=== PATIENT | female | born 1960 | race Caucasian/White ===

== ENCOUNTER 2017-01-10 06:19 | Day surgery (SDC) | payer OTHER ==
[2017-01-09 13:23] LABS: MANUAL DIFF NEEDED? NO
[2017-01-09 13:31] LABS: BASO% 0.4 % (0.0-0.8); EOS# 0.17 X1000 (0.0-0.7); EOS% 2.1 % (0.0-10.0); HEMOGLOBIN 13.4 g/dL (12.0-16.0); LYMPH# 2.81 X1000 (1.2-3.4); LYMPH% 34.1 % (20.5-51.1); MCH 26.6 PG (27-31); MCHC 32.7 g/dL (33-37); MCV 81.5 FL (81-99); MONO# 0.58 X1000 (0.11-0.59); MPV 10.8 FL (7.4-10.4); NEUT% 56.4 % (42.2-75.2); PLT 273 X1000 (130-400); RBC 5.03 XMIL (4.2-5.4)
--- NOTE | 2017-01-09 13:58 | EKG Report ---
Test Performed on : 01/09/2017 1:14:31 PM Test Reason : PAT Blood Pressure : / mmHG Vent. Rate : 081 BPM Atrial Rate : 081 BPM P-R Int : 158 ms QRS Dur : 086 ms QT Int : 412 ms P-R-T Axes : 060 010 055 degrees QTc Int : 478 ms Normal sinus rhythm. Normal ECG No previous ECGs available Confirmed by Orin RAYGOZA, Louis Pyle ([id number]) on 01/11/2017 5:20:12 PM
[2017-01-09 14:13] LABS: AGAP 12; BUN 13 mg/dL (8-22); CALCIUM 9.2 mg/dL (8.8-10.2); CHLORIDE 102 mmol/L (98-107); COSMO 286; SODIUM 143 mmol/L (136-145); TCO2 29 mmol/L (25-35)
[2017-01-10] MEDS ORDERED: REGLAN ONE (06:53)
[2017-01-10] MEDS ORDERED: PEPCID ONE (06:53)
[2017-01-10] MEDS ORDERED: KEFZOL 2 GM/D5W 50 ML ONE (06:54)
[2017-01-10] MEDS ORDERED: LR 1,000 ML ONE (06:54)
[2017-01-10] MEDS ORDERED: XYLOCAINE 2% JELLY UROJECT ONE (08:57)
[2017-01-10] MEDS ORDERED: B & O 16A SUPP ONE (09:49)
--- NOTE | 2017-01-10 10:18 | Diag Imaging Result Document ---
PROCEDURE NAME: RETROGRADES 2 OR 3 FILMS - 01/10/2017 SIX FLUOROSCOPIC FILMS SUBMITTED FROM A PROCEDURE PERFORMED BY DR. TYLER: FINDINGS: There is retrograde filling of both ureters. No obstruction to retrograde flow within either ureter. No filling defect or stricture. The calices are blunted. No drainage film taken. IMPRESSION: No definite abnormality.
[2017-01-10 11:31] VITALS: BP 140/76
[2017-01-10] MEDS ORDERED: ZOFRAN ONE (14:58)
[2017-01-10] MEDS ORDERED: XYLOCAINE-MPF 2% ONE (14:59)
[2017-01-10] MEDS ORDERED: DECADRON ONE (14:59)
--- NOTE | 2017-01-10 16:08 | OPERATIVE NOTE ---
PROCEDURE DATE: 01/10/2017 PREOPERATIVE DIAGNOSES: 1. Right flank pain of unknown etiology (normal CT scan with a normal looking right kidney and ureter). 2. Degenerative joint disease of the lumbar spine. 3. Urethral stenosis. 4. Chronic cystitis. 5. Possible interstitial cystitis. 6. Urethral stenosis and hypoestrogenism. POSTOPERATIVE DIAGNOSES: 1. Right flank pain of unknown etiology (normal CT scan with a normal looking right kidney and ureter). 2. Degenerative joint disease of the lumbar spine. 3. Urethral stenosis. 4. Chronic cystitis. 5. Possible interstitial cystitis. 6. Urethral stenosis and hypoestrogenism. PROCEDURE: Cystoscopy. Bilateral retrograde pyelogram. Hydrodistention bladder biopsy. Urethral dilatation. ANESTHESIA: General. SURGEON: Jean Marie Reilly MD. PROCEDURE IN DETAIL: The patient was explained about the risks and benefits. She was taken to the operating room and was induced with general anesthesia. The external genitalia on inspection looked basically normal. There was 1+ urethral stenosis and a small urethral caruncle. The urethra was dilated to 26-[place] with the female sounds. A #21 rigid cystoscope was introduced into the bladder. The bladder was inspected. 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 Both ureteral orifices looked normal and the retrograde pyelogram revealed normal upper tracts. Hydrodistention of the bladder was done with 600 mL, and a second look was obtained. There was evidence of some glomerulations and petechial hemorrhagic areas in the base of the bladder. One bladder biopsy was obtained from one of those areas with alligator biopsy forceps. Sampling was satisfactory. The cystoscope was withdrawn. Further plan would be to treat her with some topical estrogen cream. We probably need to give her some topical silver nitrate inside the bladder for chronic trigonal cystitis and treat her with some p.o. antibiotics. We will give her topical estrogen cream and some medication for degenerative joint disease and lumbosacral arthritis.
[2017-01-10] MEDS ORDERED: DIPRIVAN 1% ONE (16:21)
== END 2017-01-10 11:20 | disposition home or self-care (01) ==
LOC: OPS 06:19
PROVIDERS: ATTEND Specialist
DX: N30.10 Interstitial cystitis (chronic) without hematuria (principal); N35.9 Urethral stricture, unspecified; I10 Essential (primary) hypertension; Z98.84 Bariatric surgery status
CPT/HCPCS: 74420; 80048; 85025; 88305; 88313; 93005; 93010; J0690; J1100; J2405; J7120; Q9966